=== PATIENT | female | born 1980 | race Two or more races ===

== ENCOUNTER 2024-10-28 10:15 | Day surgery (SDC) | payer MEDICAID, SELFPAY ==
[2024-10-27 15:21] VITALS: BMI 31.7
[2024-10-28] VITALS (8 sets, daily range): BP systolic 114–136; BP diastolic 64–90; PULSE 48–66; RESP 8–20; TEMP 36.7–36.8; O2SAT 98–100; BMI 33.6
[2024-10-28] MEDS: SODIUM CHLORIDE 0.9% 500 ML 500 ML 20 ML IV (12:00)
[2024-10-28] MEDS: BENZOCAINE 20% (Hurricaine) SPRAY 1 DOSE TOP (12:01)
[2024-10-28] MEDS: fentaNYL CIT INJ 50 mCg/ML AMP 2ML (ASD USE ONLY) IVP (12:07)
[2024-10-28] MEDS: DiphenhydrAMINE INJ 50 MG/ML VIAL 25 MG IVP (12:07)
[2024-10-28] MEDS: MIDAZOLAM INJ 1 MG/ML VIAL 2 ML (ASD USE ONLY) 2 MG IVP (12:07)
== END 2024-10-28 12:40 | disposition home or self-care (01) ==
PROVIDERS: PCP Nurse Practitioner Family; Referring Provider Internal Medicine Gastroenterology; Visit Provider Internal Medicine Gastroenterology
PROC: (CPT 43239; principal; 2024-10-28 10:30)
DX: K44.9 Diaphragmatic hernia without obstruction or gangrene (principal); Z98.84 Bariatric surgery status; K29.70 Gastritis, unspecified, without bleeding; K31.89 Other diseases of stomach and duodenum; K63.89 Other specified diseases of intestine
CPT/HCPCS: 43239; 81025; A4649; J1200; J2250; J3010; J7040; A9270

== ENCOUNTER 2024-10-30 10:55 | Day surgery (SDC) | payer MEDICAID, SELFPAY ==
[2024-10-29 15:06] VITALS: BMI 31.7
[2024-10-30] VITALS (12 sets, daily range): BP systolic 100–135; BP diastolic 62–84; PULSE 48–71; RESP 17–22; TEMP 36.4–36.6; O2SAT 96–100; BMI 32.8
[2024-10-30] MEDS: SODIUM CHLORIDE 0.9% 500 ML 500 ML 20 ML IV (12:40)
[2024-10-30] MEDS: MIDAZOLAM INJ 1 MG/ML VIAL 2 ML (ASD USE ONLY) 2 MG IVP (12:45)
[2024-10-30] MEDS: fentaNYL CIT INJ 50 mCg/ML AMP 2ML (ASD USE ONLY) IVP (12:45)
[2024-10-30] MEDS: DiphenhydrAMINE INJ 50 MG/ML VIAL 25 MG IVP (12:45)
== END 2024-10-30 14:05 | disposition home or self-care (01) ==
PROVIDERS: PCP Nurse Practitioner Family; Referring Provider Internal Medicine Gastroenterology; Visit Provider Internal Medicine Gastroenterology
PROC: 0DBE8ZX Excision of Large Intestine, Via Natural or Artificial Opening Endoscopic, Diagnostic (ICD-10-PCS; CPT 45380; principal; 2024-10-30 11:30)
DX: K64.8 Other hemorrhoids (principal); K63.89 Other specified diseases of intestine
CPT/HCPCS: 45380; A4217; J1200; J2250; J3010; J7040